=== PATIENT | male | born 2000 | race African-American/Black ===

== ENCOUNTER 2020-09-10 21:39 | Emergency (ER) | payer BC ==
[~2020-09-10 21:39] MED LIST: Iopamidol-370 76% 500 ML 1 ML ONE
[2020-09-10] MEDS ORDERED: Fentanyl 100 MCG/2 ML VIAL ONE (21:44)
[2020-09-10] MEDS ORDERED: Lidocaine 1% w/Epinephrine 1:100K 20 ML VIAL ONE (22:06)
[2020-09-10] MEDS ORDERED: Boostrix 0.5 ML (Tdap) VIAL ONE (22:10)
== END 2020-09-10 23:55 | disposition home or self-care (01) ==
LOC: ERS 21:39
DX: S01.112A Laceration without foreign body of left eyelid and periocular area, initial encounter (principal); M54.2 Cervicalgia; R07.9 Chest pain, unspecified; R10.9 Unspecified abdominal pain; X58.XXXA Exposure to other specified factors, initial encounter
CPT/HCPCS: 12001; 70450; 70498; 71260; 72125; 74177; 90471; 90715; 96374; G0390; J3010; Q9967